=== PATIENT | female | born 1990 ===

== ENCOUNTER → 2018-01-03 | Outpatient (CLI) | payer BC ==
[~2018-01-03] MED LIST: HYDACE5 PO; IBUP800 PO; LACT10SY PO; MULVITMINE PO; NAPR500 PO; PRAHYD1AE TOP; RXHYDACE PO
[2018-01-03 17:17] LABS: BASOPHILS ABSOLUTE AUTO 0.04 K/mm3 (0.00-0.23); BASOPHILS PERCENT AUTO 1 % (0-2); EOSINOPHILS ABSOLUTE AUTO 0.38 K/mm3 (0.00-0.68); EOSINOPHILS PERCENT AUTO 6 % (0-6); IMMATURE GRAN ABSOLUTE AUTO 0.01 K/mm3 (0.00-0.10); IMMATURE GRAN PERCENT AUTO 0 % (0-1); LYMPHOCYTES ABSOLUTE AUTO 1.86 K/mm3 (0.84-5.20); LYMPHOCYTES PERCENT AUTO 30 % (21-46); MONOCYTES ABSOLUTE AUTO 0.39 K/mm3 (0.16-1.47); MONOCYTES PERCENT AUTO 6 % (4-13); Mean Corpuscular HGB Conc 33.3 g/dL (31.5-36.5); Mean Corpuscular Volume 96 fL (80-100); Mean Platelet Volume 10.4 fL (9.1-12.4); NEUTROPHILS ABSOLUTE AUTO 3.51 K/mm3 (1.96-9.15); NEUTROPHILS PERCENT AUTO 57 % (41-73); Platelet Count 180 K/mm3 (150-400); RDW Coefficient Variation 11.6 % (11.7-14.2); RDW Standard Deviation 40.7 fL (35.1-46.3); Red Blood Cell Count 3.75 M/mm3 (3.80-5.20); White Blood Cell Count 6.19 K/mm3 (4.00-11.30)
[2018-01-03 17:30] LABS: Alanine Aminotransfer (ALT/SGP 22 U/L (12-78); Albumin, Blood 3.7 g/dL (3.4-5.0); Albumin/Globulin Ratio 0.9 (0.8-1.8); Alk Phos 45 U/L (50-136); Anion Gap 5 mmol/L (6-16); Aspartate Aminotrans (AST/SGOT 11 U/L (12-37); Bilirubin, Total 0.4 mg/dL (0.1-1.0); Blood Urea Nitrogen 8 mg/dL (8-24); Bun/Creatinine Ratio 12.1 (12.0-20.0); CO2, Blood 28 mmol/L (21-32); Calcium, Blood 8.9 mg/dL (8.5-10.1); Chloride, Blood 104 mmol/L (98-108); Creatinine, Blood 0.66 mg/dL (0.40-1.00); Glomerular Filtration Rate >60 (60-); Glucose, Blood 97 mg/dL (70-99); Potassium, Blood 3.5 mmol/L (3.5-5.5); Sodium, Blood 137 mmol/L (136-145); Total Protein, Blood 7.7 g/dL (6.4-8.2)
== END ==
LOC: LAB SHORT 16:40 → LAB 16:40
PROVIDERS: Family Medicine
DX: R51 Headache (principal)
CPT/HCPCS: 80053; 85025; 85651

== ENCOUNTER 2019-09-10 15:25 | Inpatient (IN) | payer BC ==
[~2019-09-10] VITALS: Ht 172.7 cm; Wt 88.1 kg
[2019-09-10] MEDS ORDERED: PRENATAL TABLE1 EAC2 PO (16:05)
[2019-09-10] MEDS ORDERED: IRON150C PO (16:05)
[2019-09-10 16:12] LABS: BASOPHILS ABSOLUTE AUTO 0.04 K/mm3 (0.00-0.23); BASOPHILS PERCENT AUTO 0 % (0-2); EOSINOPHILS ABSOLUTE AUTO 0.21 K/mm3 (0.00-0.68); EOSINOPHILS PERCENT AUTO 2 % (0-6); Hematocrit 35.5 % (33.0-51.0); Hemoglobin 11.9 g/dL (11.5-16.0); IMMATURE GRAN ABSOLUTE AUTO 0.12 K/mm3 (0.00-0.10); IMMATURE GRAN PERCENT AUTO 1 % (0-1); LYMPHOCYTES ABSOLUTE AUTO 2.97 K/mm3 (0.84-5.20); LYMPHOCYTES PERCENT AUTO 22 % (21-46); MONOCYTES ABSOLUTE AUTO 0.76 K/mm3 (0.16-1.47); MONOCYTES PERCENT AUTO 6 % (4-13); Mean Corpuscular HGB 32.2 pg (26.0-34.0); Mean Corpuscular HGB Conc 33.5 g/dL (31.5-36.5); Mean Corpuscular Volume 96 fL (80-100); Mean Platelet Volume 10.8 fL (9.1-12.4); NEUTROPHILS ABSOLUTE AUTO 9.39 K/mm3 (1.96-9.15); NEUTROPHILS PERCENT AUTO 70 % (41-73); Platelet Count 203 K/mm3 (150-400); RDW Coefficient Variation 12.1 % (11.7-14.2); Red Blood Cell Count 3.69 M/mm3 (3.80-5.20); White Blood Cell Count 13.49 K/mm3 (4.00-11.30)
--- NOTE | 2019-09-10 19:07 | NUR ---
LABS DRAWN FROM IV START PER PROTOCOL
--- NOTE | 2019-09-10 19:13 | NUR ---
PT GAVE STUDENT NURSE PERMISSION TO ASSIST WITH CARE ON 09/10/2019.
[2019-09-11 06:36] LABS: BASOPHILS ABSOLUTE AUTO 0.03 K/mm3 (0.00-0.23); BASOPHILS PERCENT AUTO 0 % (0-2); EOSINOPHILS ABSOLUTE AUTO 0.16 K/mm3 (0.00-0.68); EOSINOPHILS PERCENT AUTO 1 % (0-6); Hematocrit 33.3 % (33.0-51.0); Hemoglobin 10.9 g/dL (11.5-16.0); IMMATURE GRAN ABSOLUTE AUTO 0.13 K/mm3 (0.00-0.10); IMMATURE GRAN PERCENT AUTO 1 % (0-1); LYMPHOCYTES ABSOLUTE AUTO 2.08 K/mm3 (0.84-5.20); LYMPHOCYTES PERCENT AUTO 15 % (21-46); MONOCYTES ABSOLUTE AUTO 0.81 K/mm3 (0.16-1.47); MONOCYTES PERCENT AUTO 6 % (4-13); Mean Corpuscular HGB 31.7 pg (26.0-34.0); Mean Corpuscular HGB Conc 32.7 g/dL (31.5-36.5); Mean Corpuscular Volume 97 fL (80-100); Mean Platelet Volume 11.1 fL (9.1-12.4); NEUTROPHILS ABSOLUTE AUTO 10.39 K/mm3 (1.96-9.15); NEUTROPHILS PERCENT AUTO 76 % (41-73); Platelet Count 171 K/mm3 (150-400); RDW Coefficient Variation 12.4 % (11.7-14.2); RDW Standard Deviation 43.4 fL (35.1-46.3); Red Blood Cell Count 3.44 M/mm3 (3.80-5.20)
[2019-09-11] MEDS ORDERED: IBUP800 PO (14:11)
--- NOTE | 2019-09-11 19:27 | NUR ---
SHIFT CHANGE REPORT GIVEN TO YOSELYN CEBALLOS. PT AWAITING DISCHARGE. ALL TEACHING DONE AND SIGNED. PENDING TSB RESULT TO MAKE THE PPFU APPOINTMENTS. SHAHEEN OAKLEY IS SIGNING PATIENT UP FOR PORTAL BEFORE DISCHARGE.
--- NOTE | 2019-09-11 20:44 | NUR ---
discharge pt given discharge instructions, bands matched, hugs removed,denies any further questions. vital and bleeding all within normal limits. will return back 09/13/19 for ppfu/ check
== END 2019-09-11 20:24 | disposition home or self-care (01) | DRG 806 ==
LOC: OBS 15:25 → BC 15:25 → OBS 15:44 → BC 15:45
PROVIDERS: ADMIT Advanced Practice Midwife
PROC: 10E0XZZ Delivery of Products of Conception, External Approach (ICD-10-PCS; principal; 2019-09-10)
PROC: 10D17Z9 Manual Extraction of Products of Conception, Retained, Via Natural or Artificial Opening (ICD-10-PCS; 2019-09-10)
PROC: 3E0R3BZ Introduction of Anesthetic Agent into Spinal Canal, Percutaneous Approach (ICD-10-PCS; 2019-09-10)
DX: O48.0 Post-term pregnancy (principal); O72.0 Third-stage hemorrhage; Z37.0 Single live birth; Z3A.40 40 weeks gestation of pregnancy
CPT/HCPCS: 36415; 51702; 85025; J0690; J1885; J2001; J2210; J2590; J3010; J7120

== ENCOUNTER → 2020-03-01 | Outpatient (CLI) | payer BC ==
[~2020-03-01] MED LIST changes: +IRON150C PO; +PRENATAL TABLE1 EAC2 PO
[2020-03-01 19:36] LABS: BASOPHILS ABSOLUTE AUTO 0.04 K/mm3 (0.00-0.23); BASOPHILS PERCENT AUTO 1 % (0-2); EOSINOPHILS ABSOLUTE AUTO 0.54 K/mm3 (0.00-0.68); EOSINOPHILS PERCENT AUTO 8 % (0-6); Hematocrit 32.6 % (33.0-51.0); Hemoglobin 10.6 g/dL (11.5-16.0); IMMATURE GRAN PERCENT AUTO 0 % (0-1); LYMPHOCYTES ABSOLUTE AUTO 2.58 K/mm3 (0.84-5.20); LYMPHOCYTES PERCENT AUTO 40 % (21-46); MONOCYTES ABSOLUTE AUTO 0.38 K/mm3 (0.16-1.47); MONOCYTES PERCENT AUTO 6 % (4-13); Mean Corpuscular HGB 31.6 pg (26.0-34.0); Mean Corpuscular HGB Conc 32.5 g/dL (31.5-36.5); Mean Corpuscular Volume 97 fL (80-100); Mean Platelet Volume 10.9 fL (9.1-12.4); NEUTROPHILS PERCENT AUTO 45 % (41-73); Platelet Count 221 K/mm3 (150-400); RDW Coefficient Variation 11.6 % (11.7-14.2); RDW Standard Deviation 41.3 fL (35.1-46.3); Red Blood Cell Count 3.35 M/mm3 (3.80-5.20); White Blood Cell Count 6.44 K/mm3 (4.00-11.30)
[2020-03-01 20:35] LABS: Alanine Aminotransfer (ALT/SGP 25 U/L (12-78); Albumin, Blood 3.6 g/dL (3.4-5.0); Albumin/Globulin Ratio 0.9 (0.8-1.8); Alk Phos 56 U/L (50-136); Anion Gap 6 mmol/L (6-16); Aspartate Aminotrans (AST/SGOT 15 U/L (12-37); Bilirubin, Total 0.2 mg/dL (0.1-1.0); Blood Urea Nitrogen 13 mg/dL (8-24); Bun/Creatinine Ratio 21.1 (12.0-20.0); CO2, Blood 27 mmol/L (21-32); Chloride, Blood 106 mmol/L (98-108); Creatinine, Blood 0.62 mg/dL (0.40-1.00); Globulin, Blood 4.1 g/dL (2.2-4.0); Glomerular Filtration Rate >60 (60-); Glucose, Blood 100 mg/dL (70-99); Potassium, Blood 3.4 mmol/L (3.5-5.5); Sodium, Blood 139 mmol/L (136-145); Total Protein, Blood 7.7 g/dL (6.4-8.2)
== END | disposition home or self-care (01) ==
LOC: LAB 18:50 → LAB SHORT 18:50
PROVIDERS: Nurse Practitioner
DX: R53.83 Other fatigue (principal)
CPT/HCPCS: 80053; 82306; 82607; 82746; 84443; 85025; 85651

== ENCOUNTER → 2022-07-12 | Outpatient (CLI) | payer OTHER ==
[2022-07-13 09:10] LABS: HBSAG SCREEN Negative (Negative); HCV ANTIBODY <0.1 (0.0-0.9); HIV AB/P24 AG SCREEN Non Reactive (Non Reactive)
[2022-07-13 09:42] LABS: Candida species (DNA Probe) Negative (NEGATIVE); G. vaginalis (DNA Probe) Positive (NEGATIVE); T. vaginalis (DNA Probe) Negative (NEGATIVE)
[2022-07-14 18:06] LABS: CHLAMYDIA BY NAA Negative (Negative); GONOCOCCUS BY NAA Negative (Negative); TRICH VAG BY NAA Negative (Negative)
== END ==
LOC: LAB 14:02 → LAB SHORT 14:02
PROVIDERS: Registered Nurse Community Health
DX: N89.8 Other specified noninflammatory disorders of vagina (principal); Z11.3 Encounter for screening for infections with a predominantly sexual mode of transmission
CPT/HCPCS: 86592; 86803; 87086; 87340; 87389; 87480; 87491; 87510; 87591; 87660; 87661

== ENCOUNTER → 2023-08-20 | Outpatient (CLI) | payer OTHER ==
[2023-08-21 08:50] LABS: Candida species (DNA Probe) Negative (NEGATIVE); G. vaginalis (DNA Probe) Positive (NEGATIVE); T. vaginalis (DNA Probe) Negative (NEGATIVE)
[2023-08-21 18:14] LABS: HEPATITIS B SURFACE ANTIGEN Negative (Negative)
[2023-08-21 18:17] LABS: HEPATITIS C AB CIA INTERP Negative (Negative); HEPATITIS C ANTIBODY CIA INDEX 0.06 IV
[2023-08-21 19:55] LABS: HIV 1,2 COMBO ANTIGEN/ANTIBODY Negative (Negative)
[2023-08-22 04:30] LABS: APTIMA MEDIA TYPE Urine; C. TRACHOMATIS BY TMA Positive (Negative); N. GONORRHOEAE BY TMA Negative (Negative); SPECIMEN SOURCE Urine
== END | disposition home or self-care (01) ==
LOC: LAB 14:24 → LAB SHORT 14:24
PROVIDERS: Registered Nurse Community Health
DX: Z11.3 Encounter for screening for infections with a predominantly sexual mode of transmission (principal)
CPT/HCPCS: 86592; 86803; 87340; 87389; 87480; 87491; 87510; 87591; 87660

== ENCOUNTER → 2023-08-29 | Outpatient (CLI) | payer OTHER ==
[2023-08-29 12:30] LABS: Candida species (DNA Probe) Negative (NEGATIVE); G. vaginalis (DNA Probe) Negative (NEGATIVE); T. vaginalis (DNA Probe) Negative (NEGATIVE)
[2023-08-31 13:14] LABS: APTIMA MEDIA TYPE Unisex Swab; C. TRACHOMATIS BY TMA Negative (Negative); N. GONORRHOEAE BY TMA Negative (Negative); SPECIMEN SOURCE Not Provided
== END | disposition home or self-care (01) ==
LOC: LAB SHORT 09:06 → LAB 09:06
PROVIDERS: Family Medicine
DX: N76.0 Acute vaginitis (principal)
CPT/HCPCS: 87480; 87491; 87510; 87591; 87660

== ENCOUNTER → 2023-09-05 | Outpatient (CLI) | payer OTHER ==
[2023-09-07 18:10] LABS: APTIMA MEDIA TYPE MultiTest Swab; C. TRACHOMATIS BY TMA Negative (Negative); N. GONORRHOEAE BY TMA Negative (Negative); SPECIMEN SOURCE Vaginal; T. VAGINALIS BY TMA Negative (Negative)
== END ==
LOC: LAB SHORT 09:15 → LAB 09:15
PROVIDERS: Registered Nurse Community Health
DX: Z11.3 Encounter for screening for infections with a predominantly sexual mode of transmission (principal); Z20.2 Contact with and (suspected) exposure to infections with a predominantly sexual mode of transmission
CPT/HCPCS: 87491; 87591; 87661

== ENCOUNTER 2023-12-18 01:50 | Emergency (ER) | payer OTHER ==
[~2023-12-18] VITALS: Ht 172.7 cm; Wt 68.0 kg
[2023-12-18 04:15] VITALS: BP 88/65
== END 2023-12-18 07:06 | disposition home or self-care (01) ==
LOC: ER 01:50
DX: F10.129 Alcohol abuse with intoxication, unspecified (principal); Z79.899 Other long term (current) drug therapy; Z87.891 Personal history of nicotine dependence
CPT/HCPCS: 99284

== ENCOUNTER → 2024-03-12 | Outpatient (CLI) | payer OTHER | LOC: LAB 18:23 → LAB SHORT 18:23 | DX: N39.0 Urinary tract infection, site not specified (principal) | CPT/HCPCS: 87086 ==

== ENCOUNTER → 2024-03-23 | Outpatient (CLI) | payer OTHER ==
[2024-03-23 20:39] LABS: Bacterial Vaginosis PCR Negative (NEGATIVE); Candida Group, PCR NOT DETECTED (NOT DETECT); Candida glabrata-krusei, PCR NOT DETECTED (NOT DETECT)
[2024-03-27 03:02] LABS: APTIMA MEDIA TYPE Unisex Swab; C. TRACHOMATIS BY TMA Negative (Negative); N. GONORRHOEAE BY TMA Negative (Negative); SPECIMEN SOURCE Not Provided
== END | disposition home or self-care (01) ==
LOC: LAB SHORT 19:10
PROVIDERS: Physician Assistant
DX: R10.2 Pelvic and perineal pain (principal)
CPT/HCPCS: 87481; 87491; 87591; 87661; 87801

== ENCOUNTER → 2024-05-15 | Outpatient (CLI) | payer OTHER | LOC: LAB 08:40 → LAB SHORT 08:40 | DX: N39.0 Urinary tract infection, site not specified (principal) | CPT/HCPCS: 87086 ==

== ENCOUNTER → 2024-07-06 | Outpatient (CLI) | payer OTHER ==
[2024-07-06 20:29] LABS: Candida Group, PCR NOT DETECTED (NOT DETECT); Candida glabrata-krusei, PCR NOT DETECTED (NOT DETECT)
[2024-07-06 20:41] LABS: Bacterial Vaginosis PCR Positive (NEGATIVE)
[2024-07-06 21:00] LABS: Chlamydia Trachomatis Cervix NOT DETECTED (NOT DETECT); Neisseria Gonorrhoea Cervix NOT DETECTED (NOT DETECT)
== END ==
LOC: LAB 18:31 → LAB SHORT 18:31
PROVIDERS: Physician Assistant Medical
DX: N89.8 Other specified noninflammatory disorders of vagina (principal)
CPT/HCPCS: 87481; 87491; 87591; 87661; 87801

== ENCOUNTER → 2025-03-03 | Outpatient (CLI) | payer OTHER ==
[2025-03-03 13:09] LABS: Bacterial Vaginosis PCR Negative (NEGATIVE); Candida Group, PCR NOT DETECTED (NOT DETECT); Candida glabrata-krusei, PCR NOT DETECTED (NOT DETECT)
[2025-03-03 14:44] LABS: Chlamydia Trachomatis Cervix NOT DETECTED (NOT DETECT); Neisseria Gonorrhoea Cervix NOT DETECTED (NOT DETECT)
== END | disposition home or self-care (01) ==
LOC: LAB 08:18 → LAB SHORT 08:18
PROVIDERS: Physician Assistant
DX: R10.2 Pelvic and perineal pain (principal)
CPT/HCPCS: 81515; 87491; 87591

== ENCOUNTER → 2025-06-21 | Outpatient (CLI) | payer OTHER ==
[2025-06-21 17:42] LABS: Candida Group, PCR NOT DETECTED (NOT DETECT); Candida glabrata-krusei, PCR NOT DETECTED (NOT DETECT)
[2025-06-21 17:43] LABS: Bacterial Vaginosis PCR Positive (NEGATIVE)
== END ==
LOC: LAB SHORT 16:14 → LAB 16:14
PROVIDERS: Nurse Practitioner
DX: R30.0 Dysuria (principal); N89.8 Other specified noninflammatory disorders of vagina
CPT/HCPCS: 81515